=== PATIENT | female | born 1940 | race Two or more races ===

== ENCOUNTER 2017-08-30 08:27 | Outpatient (CLI) | payer OTHER ==
[~2017-08-30 08:27] MED LIST: CALCITRIOL0.5 MCG; COREG CR20 MG; HUMALOG MIX 75/10 ML; LANTUS SOLOSTAR3 ML; LOSARTAN POTASS25 MG; PLAVIX75 MG; SYNTHROID50 MCG
== END 2017-08-30 08:38 | disposition home or self-care (01) ==
LOC: LAB 08:27
DX: C50.811 Malignant neoplasm of overlapping sites of right female breast (principal); E03.8 Other specified hypothyroidism; I10 Essential (primary) hypertension; D63.1 Anemia in chronic kidney disease; N18.4 Chronic kidney disease, stage 4 (severe); G30.0 Alzheimer's disease with early onset; D50.8 Other iron deficiency anemias; D51.8 Other vitamin B12 deficiency anemias; D47.2 Monoclonal gammopathy; C90.00 Multiple myeloma not having achieved remission; R97.0 Elevated carcinoembryonic antigen [CEA]; R97.8 Other abnormal tumor markers; N18.2 Chronic kidney disease, stage 2 (mild); E11.21 Type 2 diabetes mellitus with diabetic nephropathy; E11.49 Type 2 diabetes mellitus with other diabetic neurological complication

== ENCOUNTER 2017-11-01 14:07 | Emergency (ER) | payer OTHER ==
[~2017-11-01] VITALS: Ht 152.4 cm; Wt 46.7 kg
[~2017-11-01 14:07] MED LIST changes: -LOSARTAN POTASS25 MG; +LOSARTAN POTASS25 MG PO
[2017-11-01] MEDS ORDERED: ZOLOFT25 MG PO (14:26)
[2017-11-01] MEDS ORDERED: MEMANTINE HCL10 MG PO (14:27)
== END 2017-11-01 16:14 | disposition home or self-care (01) ==
LOC: ER 14:07
DX: M54.5 Low back pain (principal)

== ENCOUNTER 2017-11-07 09:58 | Outpatient (CLI) | payer OTHER ==
[~2017-11-07 09:58] MED LIST changes: -COREG CR20 MG; +COREG CR20 MG PO; +MEMANTINE HCL10 MG PO; +ZOLOFT25 MG PO
== END 2017-11-07 10:16 | disposition home or self-care (01) ==
LOC: NUCLEAR 09:58
DX: C50.811 Malignant neoplasm of overlapping sites of right female breast (principal); R97.0 Elevated carcinoembryonic antigen [CEA]; E11.22 Type 2 diabetes mellitus with diabetic chronic kidney disease; E11.40 Type 2 diabetes mellitus with diabetic neuropathy, unspecified; E03.8 Other specified hypothyroidism; I10 Essential (primary) hypertension; D63.1 Anemia in chronic kidney disease; N18.4 Chronic kidney disease, stage 4 (severe); G30.0 Alzheimer's disease with early onset
CPT/HCPCS: 78816; A9552

== ENCOUNTER 2017-11-07 12:09 | Inpatient (IN) | payer OTHER ==
[~2017-11-07] VITALS: Ht 152.4 cm; Wt 46.7 kg
== END 2017-11-12 10:59 | disposition home or self-care (01) | DRG 683 ==
LOC: ER 12:09 → SEC-K 11-08 11:16 → MEDI 11-08 11:16
PROC: B246ZZZ Ultrasonography of Right and Left Heart (ICD-10-PCS; principal; 2017-11-08)
PROC: BW40ZZZ Ultrasonography of Abdomen (ICD-10-PCS; 2017-11-08)
DX: N17.8 Other acute kidney failure (principal); F05 Delirium due to known physiological condition; E86.0 Dehydration; E87.5 Hyperkalemia; G30.8 Other Alzheimer's disease; F02.80 Dementia in other diseases classified elsewhere, unspecified severity, without behavioral disturbance, psychotic disturbance, mood disturbance, and anxiety; E03.8 Other specified hypothyroidism; Z95.810 Presence of automatic (implantable) cardiac defibrillator; E11.21 Type 2 diabetes mellitus with diabetic nephropathy; E11.22 Type 2 diabetes mellitus with diabetic chronic kidney disease; I12.9 Hypertensive chronic kidney disease with stage 1 through stage 4 chronic kidney disease, or unspecified chronic kidney disease; N18.1 Chronic kidney disease, stage 1; D63.1 Anemia in chronic kidney disease; I25.10 Atherosclerotic heart disease of native coronary artery without angina pectoris; Z85.3 Personal history of malignant neoplasm of breast; Z90.11 Acquired absence of right breast and nipple; R39.2 Extrarenal uremia; K76.1 Chronic passive congestion of liver; Z78.1 Physical restraint status

== ENCOUNTER 2018-10-20 16:17 | Emergency (ER) | payer OTHER ==
[~2018-10-20] VITALS: Ht 157.5 cm; Wt 50.8 kg
[2018-10-20] MEDS ORDERED: NEURONTIN300 MG PO (17:22)
[2018-10-20] MEDS ORDERED: MEMANTINE HCL5 MG PO (17:23)
[2018-10-20] MEDS ORDERED: CARVEDILOL6.25 MG PO (17:23)
[2018-10-20] MEDS ORDERED: HUMALOG MI100 UNIT/2 SQ (17:24)
[2018-10-20] MEDS ORDERED: CRESTOR10 MG PO (17:24)
== END 2018-10-20 20:06 | disposition home or self-care (01) ==
LOC: ER 16:17
DX: M10.072 Idiopathic gout, left ankle and foot (principal)

== ENCOUNTER 2018-10-28 21:53 | Emergency (ER) | payer OTHER ==
[~2018-10-28] VITALS: Ht 152.4 cm; Wt 53.1 kg
[~2018-10-28 21:53] MED LIST changes: +CARVEDILOL6.25 MG PO; +CRESTOR10 MG PO; +HUMALOG MI100 UNIT/2 SQ; +MEMANTINE HCL5 MG PO; +NEURONTIN300 MG PO
[2018-10-28] MEDS ORDERED: ZOLOFT50 MG PO (22:36)
[2018-10-28] MEDS ORDERED: VALSARTAN80 MG PO (22:36)
[2018-10-28] MEDS ORDERED: DIALYVITE 800-1 EACH PO (22:36)
[2018-10-28] MEDS ORDERED: CLARITIN10 M1 PO (22:36)
[2018-10-28] MEDS ORDERED: LAC-HYDRIN FIV226 GM (22:37)
[2018-10-29] MEDS ORDERED: LEVAQUIN500 MG PO (03:28)
[2018-10-29] MEDS ORDERED: INTESTINEX680 M1 PO (03:28)
== END 2018-10-29 04:08 | disposition home or self-care (01) ==
LOC: ER 21:53
DX: L03.116 Cellulitis of left lower limb (principal)

== ENCOUNTER 2019-02-19 09:02 | Outpatient (CLI) | payer OTHER ==
[~2019-02-19 09:02] MED LIST changes: +CLARITIN10 M1 PO; +DIALYVITE 800-1 EACH PO; +INTESTINEX680 M1 PO; +LAC-HYDRIN FIV226 GM; +LEVAQUIN500 MG PO; +VALSARTAN80 MG PO; +ZOLOFT50 MG PO
== END 2019-02-19 09:08 | disposition home or self-care (01) ==
LOC: RAD 09:02
DX: M75.52 Bursitis of left shoulder (principal); G30.8 Other Alzheimer's disease; M06.4 Inflammatory polyarthropathy; E78.2 Mixed hyperlipidemia; F39 Unspecified mood [affective] disorder; E11.69 Type 2 diabetes mellitus with other specified complication; I12.0 Hypertensive chronic kidney disease with stage 5 chronic kidney disease or end stage renal disease; N18.2 Chronic kidney disease, stage 2 (mild)

== ENCOUNTER 2019-02-19 09:32 | Outpatient (CLI) | payer OTHER | END 2019-02-19 13:50 | disposition home or self-care (01) | LOC: SONOGRAMA 09:32 | DX: M75.52 Bursitis of left shoulder (principal); G30.8 Other Alzheimer's disease; M06.4 Inflammatory polyarthropathy; E78.2 Mixed hyperlipidemia; F39 Unspecified mood [affective] disorder; E11.69 Type 2 diabetes mellitus with other specified complication; I12.0 Hypertensive chronic kidney disease with stage 5 chronic kidney disease or end stage renal disease; N18.2 Chronic kidney disease, stage 2 (mild); E04.2 Nontoxic multinodular goiter ==

== ENCOUNTER 2019-06-20 11:11 | Outpatient (CLI) | payer OTHER | END 2019-06-20 11:13 | disposition home or self-care (01) | LOC: RAD 11:11 | DX: M79.641 Pain in right hand (principal) ==

== ENCOUNTER 2020-03-29 11:38 | Emergency (ER) | payer OTHER ==
[~2020-03-29] VITALS: Ht 160 cm; Wt 47.6 kg
== END 2020-03-29 15:37 | disposition home or self-care (01) ==
LOC: ER 11:38 → EDBD 12:20 → ER 15:37
DX: S90.32XA Contusion of left foot, initial encounter (principal); W18.09XA Striking against other object with subsequent fall, initial encounter; Y93.89 Activity, other specified; Y92.128 Other place in nursing home as the place of occurrence of the external cause; Y99.8 Other external cause status

== ENCOUNTER 2020-04-09 13:10 | Inpatient (IN) | payer OTHER ==
[~2020-04-09] VITALS: Ht 149.9 cm; Wt 47.6 kg
[2020-04-09] MEDS ORDERED: PLAVIX75 MG (13:16)
[2020-04-09] MEDS ORDERED: SYNTHROID50 MCG (13:16)
[2020-04-09] MEDS ORDERED: ARICEPT5 MG (13:16)
[2020-04-09] MEDS ORDERED: RISPERIDONE O0.25 MG (13:17)
[2020-04-09] MEDS ORDERED: DIALYVITE 800-1 EACH (18:05)
[2020-04-09] MEDS ORDERED: DURACHOL 3,7751 EACH (18:06)
== END 2020-04-15 15:32 | disposition designated cancer center or children's hospital (05) | DRG 194 ==
LOC: ER 13:10 → MEDJ 18:48 → MEDI 18:48 → MEDJ 04-15 10:16
PROVIDERS: ADMIT Internal Medicine; ATTEND Internal Medicine
PROC: 8E0ZXY6 Isolation (ICD-10-PCS; principal; 2020-04-09)
PROC: BB24ZZZ Computerized Tomography (CT Scan) of Bilateral Lungs (ICD-10-PCS; 2020-04-09)
PROC: 4A033R1 Measurement of Arterial Saturation, Peripheral, Percutaneous Approach (ICD-10-PCS; 2020-04-09)
PROC: 4A12X4Z Monitoring of Cardiac Electrical Activity, External Approach (ICD-10-PCS; 2020-04-10)
PROC: 3E0F7GC Introduction of Other Therapeutic Substance into Respiratory Tract, Via Natural or Artificial Opening (ICD-10-PCS; 2020-04-10)
PROC: B246ZZZ Ultrasonography of Right and Left Heart (ICD-10-PCS; 2020-04-10)
DX: J12.81 Pneumonia due to SARS-associated coronavirus (principal); N17.8 Other acute kidney failure; I13.0 Hypertensive heart and chronic kidney disease with heart failure and stage 1 through stage 4 chronic kidney disease, or unspecified chronic kidney disease; I25.10 Atherosclerotic heart disease of native coronary artery without angina pectoris; E11.21 Type 2 diabetes mellitus with diabetic nephropathy; E11.22 Type 2 diabetes mellitus with diabetic chronic kidney disease; G30.8 Other Alzheimer's disease; N18.9 Chronic kidney disease, unspecified; R39.2 Extrarenal uremia; D63.1 Anemia in chronic kidney disease; D63.8 Anemia in other chronic diseases classified elsewhere; F02.80 Dementia in other diseases classified elsewhere, unspecified severity, without behavioral disturbance, psychotic disturbance, mood disturbance, and anxiety; I50.9 Heart failure, unspecified; Z95.810 Presence of automatic (implantable) cardiac defibrillator

== ENCOUNTER 2020-04-16 11:06 | Inpatient (IN) | payer OTHER ==
[~2020-04-16] VITALS: Ht 162.6 cm; Wt 120.0 kg
[~2020-04-16 11:06] MED LIST changes: +ARICEPT5 MG; +DIALYVITE 800-1 EACH; +DURACHOL 3,7751 EACH; +RISPERIDONE O0.25 MG
== END 2020-05-06 07:55 | disposition expired | DRG 208 ==
LOC: ER 11:06 → MEDJ 23:31 → SEC-K 23:31 → MEDJ 04-17 02:05
PROVIDERS: ADMIT Internal Medicine; ATTEND Internal Medicine
PROC: 4A033R1 Measurement of Arterial Saturation, Peripheral, Percutaneous Approach (ICD-10-PCS; 2020-04-16)
PROC: 8E0ZXY6 Isolation (ICD-10-PCS; 2020-04-16)
PROC: 3E0F7SF Introduction of Other Gas into Respiratory Tract, Via Natural or Artificial Opening (ICD-10-PCS; 2020-04-16)
PROC: CB2YYZZ Tomographic (Tomo) Nuclear Medicine Imaging of Respiratory System using Other Radionuclide (ICD-10-PCS; 2020-04-16)
PROC: B24BZZZ Ultrasonography of Heart with Aorta (ICD-10-PCS; 2020-04-30)
PROC: B54DZZZ Ultrasonography of Bilateral Lower Extremity Veins (ICD-10-PCS; 2020-04-30)
PROC: CB2YYZZ Tomographic (Tomo) Nuclear Medicine Imaging of Respiratory System using Other Radionuclide (ICD-10-PCS; 2020-04-30)
PROC: 5A1935Z Respiratory Ventilation, Less than 24 Consecutive Hours (ICD-10-PCS; principal; 2020-05-06)
PROC: 0BH17EZ Insertion of Endotracheal Airway into Trachea, Via Natural or Artificial Opening (ICD-10-PCS; 2020-05-06)
DX: U07.1 COVID-19 (principal); J12.89 Other viral pneumonia; I50.23 Acute on chronic systolic (congestive) heart failure; N17.8 Other acute kidney failure; E87.0 Hyperosmolality and hypernatremia; E03.9 Hypothyroidism, unspecified; G30.9 Alzheimer's disease, unspecified; F02.80 Dementia in other diseases classified elsewhere, unspecified severity, without behavioral disturbance, psychotic disturbance, mood disturbance, and anxiety; I48.91 Unspecified atrial fibrillation; R33.8 Other retention of urine; E11.21 Type 2 diabetes mellitus with diabetic nephropathy; Z79.4 Long term (current) use of insulin; N18.9 Chronic kidney disease, unspecified; I11.0 Hypertensive heart disease with heart failure; Z20.828 Contact with and (suspected) exposure to other viral communicable diseases; Z95.0 Presence of cardiac pacemaker; E87.6 Hypokalemia; E11.65 Type 2 diabetes mellitus with hyperglycemia; R09.02 Hypoxemia; C50.911 Malignant neoplasm of unspecified site of right female breast; I46.8 Cardiac arrest due to other underlying condition